=== PATIENT | female | born 1965 | race Caucasian/White ===

== ENCOUNTER → 2017-07-13 | Outpatient (CLI) | payer OTHER | LOC: FIMAGING 12:36 | PROVIDERS: ATTEND Family Medicine | DX: Z12.31 Encounter for screening mammogram for malignant neoplasm of breast (principal) | CPT/HCPCS: G0202 ==

== ENCOUNTER → 2018-08-28 | Outpatient (CLI) | payer OTHER | LOC: FIMAGING 13:48 | PROVIDERS: ATTEND Family Medicine | DX: Z12.31 Encounter for screening mammogram for malignant neoplasm of breast (principal) ==